=== PATIENT | male | born 1975 | race Hispanic/Latino ===

== ENCOUNTER 2019-07-25 05:52 | Day surgery (SDC) | payer MEDICARE ==
[2019-07-25] VITALS (10 sets, daily range): BP systolic 100–136; BP diastolic 64–74
[~2019-07-25 05:52] MED LIST: AEC81 PO; ALPR1TAB7 PO; ARIP10TA16 PO; ARIP20TA PO; ATOR20TA65 PO; CARV12.511 PO; FENO145T26 PO; FLUO20CA30 PO; HYDR100C2 PO; ISOS30TA6 PO; NITR0.4T50 SL; OMEP20CA12 PO; TRAZ-185 PO
[2019-07-25 06:50] LABS: BASOPHILS % (AUTO) 0.8 % (0.0-5.0); EOSINOPHILS % (AUTO) 4.8 % (0.0-8.0); HEMATOCRIT 37.4 % (42-54); LYMPHOCYTES % (AUTO) 23.5 % (21.0-51.0); MEAN CORPUSCULAR HEMOGLOBIN 29.8 pg (27.0-33.0); MEAN CORPUSCULAR VOLUME 87.8 fL (79-99); MONOCYTES % (AUTO) 6.6 % (3.0-13.0); NEUTROPHILS % (AUTO) 63.8 % (40.0-77.0); PLATELET COUNT (AUTO) 314 K/uL (130-400); RED BLOOD CELL COUNT(AUTO) 4.26 MIL/uL (4.50-6.20); RED CELL DISTRIBUTION WIDTH 13.6 % (11.0-15.5); WHITE BLOOD COUNT (AUTO) 9.5 K/uL (4.8-10.8)
[2019-07-25 06:58] LABS: CREATININE 0.9 mg/dL (0.5-1.5); POTASSIUM 3.8 mmol/L (3.5-5.1)
[2019-07-25 07:03] LABS: INR 0.89 (0.85-1.15); PARTIAL THROMBOPLASTIN TIME 26.7 SEC (26.3-35.5); PROTHROMBIN TIME 9.7 SEC (9.6-11.6)
[2019-07-25] MEDS ORDERED: DICY10 PO (07:18)
--- NOTE | 2019-07-25 07:20 | NUR ---
HISTORY pt states has a history of bipolar disorder with PTSD pt has old scars on each upper extremity ,states previously treated for cutting self, stopped alan 2 years ago
[2019-07-25] MEDS ORDERED: IOHEXOL 350 MG/ML 100ML INFUS..BTL IV ONE (07:34)
[2019-07-25] MEDS ORDERED: IOHEXOL-350 50ML VIAL IV ONE (07:34)
[2019-07-25] MEDS ORDERED: BIVALIRUDIN 250 MG/VIAL IV ONE (07:34)
[2019-07-25] MEDS ORDERED: MIDAZOLAM HCL 1 MG/ML 2ML VIAL ONE (07:34)
[2019-07-25] MEDS ORDERED: NITROGLYCERIN 2 MG/VIAL VIAL IV ONE (07:34)
[2019-07-25] MEDS ORDERED: FENTANYL CITRATE PF 50 MCG/1 ML 2ML VIAL ONE (07:34)
[2019-07-25] MEDS ORDERED: LIDOCAINE HCL 2% 20ML ONE (07:35)
[2019-07-25] MEDS ORDERED: SODIUM CHLORIDE 0.9% 1000ML 1,000 ML IV ONE (07:51)
[2019-07-25] MEDS ORDERED: METHYLPREDNISOLONE SOD SUCC 125MG/2ML VIAL ONE (07:56)
[2019-07-25] MEDS ORDERED: DiphenhydrAMINE HCL 50 MG/ML VIAL ONE (07:56)
[2019-07-25 07:59] LABS: APPEARANCE,URINE Clear (CLEAR); BILIRUBIN,URINE Negative (NEGATIVE); COLOR,URINE Yellow (YELLOW); GLUCOSE, URINE (UA) Negative (NEGATIVE); KETONES,URINE Negative (NEGATIVE); LEUKOCYTE ESTERASE ,URINE Negative (NEGATIVE); NITRATE,URINE Negative (NEGATIVE); OCCULT BLOOD,URINE Negative (NEGATIVE); PROTEIN,URINE Negative (NEGATIVE)
[2019-07-25] MEDS ORDERED: ADENOSINE 90MG/30ML VIAL IV ONE (08:16)
[2019-07-25] MEDS ORDERED: HEPARIN SODIUM 1000UNIT/ML 10ML VIAL ONE (08:16)
[2019-07-25] MEDS ORDERED: SODIUM CHLORIDE 0.9% 1000ML 1,000 ML IV SCH (08:36)
[2019-07-25] MEDS ORDERED: NITROGLYCERIN 0.4 MG SL TAB SL PRN (08:45)
[2019-07-25] MEDS ORDERED: DEXTROSE 50%-WATER 50 ML DISP.SYRIN IV PRN (08:45)
[2019-07-25] MEDS ORDERED: GLUCAGON 1MG KIT 1 MG ML IM PRN (08:45)
--- NOTE | 2019-07-25 11:00 | NUR ---
elevated head of bed ,heart healthy diet served ,denies pain
--- NOTE | 2019-07-25 14:10 | NUR ---
dc pt dc home via ,no distress noted.pt denied any pain or discomforts. right groin dressing dry and intact, pt dc home with his mom
== END 2019-07-25 14:10 | disposition home or self-care (01) ==
LOC: DAH 05:52 → EDSTATUS 09:00 → DAH 14:10
PROVIDERS: ATTEND Internal Medicine Cardiovascular Disease
DX: I20.9 Angina pectoris, unspecified (principal); E78.5 Hyperlipidemia, unspecified; K21.9 Gastro-esophageal reflux disease without esophagitis; F41.9 Anxiety disorder, unspecified; I11.0 Hypertensive heart disease with heart failure; I50.32 Chronic diastolic (congestive) heart failure; Z87.891 Personal history of nicotine dependence
CPT/HCPCS: 36415; 71045; 80048; 81003; 85025; 85610; 85730; 93005; 93460; 93571; A4215; A4216; A4221; A4222; A4223 ×3; A4606; A4663; C1760; C1769; C1887; C1894 ×3; J0153; J1644 ×2; J2250; J3010; J3490 ×2; J7030; Q9965 ×2; Q9967 ×2; 99156; 99157; J0583; J1200; J2930

== ENCOUNTER → 2019-08-29 | Outpatient (CLI) | payer MEDICARE ==
[~2019-08-29] MED LIST changes: -ARIP10TA16 PO; +DICY10 PO
== END | disposition home or self-care (01) ==
LOC: OIH 08:33
PROVIDERS: ATTEND Internal Medicine Cardiovascular Disease
DX: I72.9 Aneurysm of unspecified site (principal)
CPT/HCPCS: 76936